=== PATIENT | female | born 1985 | race Caucasian/White ===

== ENCOUNTER 2017-01-09 21:55 | Inpatient (IN) | payer MEDICAID ==
[~2017-01-09] VITALS: Ht 152.4 cm; Wt 78.2 kg
[2017-01-09 21:57] VITALS: BP 114/73; PULSE 64; TEMP 98.4
[2017-01-09] MEDS ORDERED: PRENATAL1 TA7 PO (22:15)
[2017-01-09 23:00] VITALS: BP 121/60; PULSE 71
[2017-01-09 23:30] VITALS: BP 116/74; PULSE 64
[2017-01-10] VITALS (48 sets, daily range): BP systolic 93–128; BP diastolic 50–77; PULSE 59–134; TEMP 97.3–102.3
[2017-01-10 01:15] LABS: BASO # 0.1 (0.0-0.2); BASO % 0.4 % (0.0-2.0); EOS # 0.3 (0.0-0.7); EOS % 1.7 % (0-4.0); GRAN % 70.4 % (42.2-75.2); HEMATOCRIT 33.1 % (37.0-47.0); HEMOGLOBIN 11.2 g/dl (12.5-16.0); LYMPH # 2.7 (1.2-3.4); LYMPH % 17.1 % (20.0-51.0); MEAN CELL VOLUME 96 fl (80.0-100.0); MEAN CORPUSCULAR HEMOGLOBIN 32 pg (27.0-31.0); MEAN CORPUSCULAR HGB CONC 34 g/dl (33.0-37.0); MONO # 1.5 (0.1-0.6); MONO % 9.6 % (1.7-9.3); PLATELET COUNT 155 K/mm3 (130-400); RED BLOOD COUNT 3.46 M/mm3 (4.10-5.30); WHITE BLOOD COUNT 15.7 K/mm3 (4.8-10.8)
[2017-01-11 03:29] VITALS: BP 100/63; PULSE 69; TEMP 97.6
[2017-01-11] MEDS ORDERED: IBU800 M1 PO (06:38)
[2017-01-11] MEDS ORDERED: PERCOCET 325 MG1 TA2 PO (06:38)
[2017-01-11 07:00] VITALS: BP 101/51; PULSE 62; TEMP 98.2
[2017-01-11 11:30] VITALS: BP 120/56; PULSE 78; TEMP 98.1
== END 2017-01-11 14:25 | disposition home or self-care (01) | DRG 774 ==
LOC: LDRO 21:55 → LDR 01-10 → OB 01-10 → LDR 01-10 09:01 → OB 01-10 15:30
PROVIDERS: Obstetrics & Gynecology
PROC: 10E0XZZ Delivery of Products of Conception, External Approach (ICD-10-PCS; principal; 2017-01-10)
DX: O48.0 Post-term pregnancy (principal); O75.2 Pyrexia during labor, not elsewhere classified; Z3A.41 41 weeks gestation of pregnancy; Z37.0 Single live birth
CPT/HCPCS: J0595; J0690; J2590; J2795; J7120

== ENCOUNTER 2019-04-21 09:55 | Inpatient (IN) | payer SELFPAY ==
[~2019-04-21] VITALS: Ht 152.4 cm; Wt 82.7 kg
[2019-04-21] VITALS (29 sets, daily range): BP systolic 100–133; BP diastolic 53–88; PULSE 75–109; TEMP 98.1–99.5
[~2019-04-21 09:55] MED LIST: IBU800 M1 PO; PERCOCET 325 MG1 TA2 PO; PRENATAL1 TA7 PO
--- NOTE | 2019-04-21 10:05 | NUR ---
G4L3 at 41.1 weeks gestation to LDR5 for contractions. Patient appears uncomfortable, she is tense and breathing through them. She reports good movement and denies leaking of fluid or vaginal bleeding. Patient changed into gown and to bed. SVE 3-4/75/-2. EFMs explained and applied. FHR 140bpm and reactive. CTX q3-4 minutes. VSS. Assessment completed. Plan of care reviewed. Patient is requesting an epidural. Dr. Cevallos on unit and updated on patient's status. Orders to admit received.
[2019-04-21] MEDS ORDERED: MILK THISTLE150 MG PO (10:22)
[2019-04-21] MEDS ORDERED: GARLIC100 MG PO (10:23)
[2019-04-21 11:19] LABS: BASO % 0.3 % (0.0-2.0); EOS # 0.1 (0.0-0.7); EOS % 0.5 % (0-4.0); GRAN # 11.2 (1.4-6.5); GRAN % 74.4 % (42.2-75.2); HEMATOCRIT 30.7 % (37.0-47.0); HEMOGLOBIN 9.7 g/dl (12.5-16.0); LYMPH # 2.3 (1.2-3.4); LYMPH % 15.1 % (20.0-51.0); MEAN CELL VOLUME 87 fl (80.0-100.0); MEAN CORPUSCULAR HEMOGLOBIN 27 pg (27.0-31.0); MEAN CORPUSCULAR HGB CONC 32 g/dl (33.0-37.0); MEAN PLATELET VOLUME 10.8 fl (7.4-10.4); MONO # 1.3 (0.1-0.6); MONO % 8.8 % (1.7-9.3); PLATELET COUNT 222 K/mm3 (130-400); RED BLOOD COUNT 3.55 M/mm3 (4.10-5.30)
--- NOTE | 2019-04-21 11:51 | NUR ---
1045 IV STARTED IN LEFT HAND AND BLOOD WORK DRAWN. 1100 ALL CONSENTS SIGNED. PATIENT SITS UP ON EDGE OF BED FOR EPIDURAL PLACEMENT. Florentin DE SOUZA DOOR GLASS INSTALLER AT BEDSIDE TOLERATE WELL. SEE DOOR GLASS INSTALLER NOTES IF NEEDED.
--- NOTE | 2019-04-21 17:39 | NUR ---
1650 PATIENT PUSHES WITH EACH CONTRACTION. DR MARIA AT BEDSIDE FOR DELIVERY. 1700 PATIENT CONTINUES TO PUSH WITH CONTRACTIONS. DR AND NURSERY IN ROOM FOR DLEIVERY. 1707 HEAD DELIVERED AT THIS TIME BY DR MARIA. PATIENT CONTINUES TO PUSH. UNABLE TO DELIVERY BABY. LEGS FLEXED AT THIS TIME AND HEAD OF BED FLAT. EMERGERGY LIGHT PULLED FOR HELP. PATIENT CONTINUES TO PUSH WITH DR. INTRUCTIONS. SUPER PUBIC PRESSURE APPLIED PER ORDER. PLEASE READ DR SCHMITT NOTES FOR QUESTIONS. 1709 BABY DELIVERED AT THIS TIME. CORD CLAMPED AND CUT BY DR MARIA AND BABY TO [facility] FOR CLOSE ASSESSMENT. BLEEDING WNL. 1715 PLACENTA DELIVERED AT THIS TIME, AND PITOCIN STARTED AT 333 PER PROTOCOL. BLEEDING WNL AND FUNDUS FIRM. DR MARIA AT BEDSIDE TAKING TO PATIENT AND HASBAND ON THE SHOULDER DYSTOCIA. VERBAL UNDERSTANDING NOTED.
[2019-04-22 00:15] VITALS: BP 104/52; PULSE 81; TEMP 99.5
[2019-04-22 04:05] VITALS: BP 104/63; PULSE 67; TEMP 97.7
[2019-04-22 06:40] VITALS: BP 108/55; PULSE 66; TEMP 97.4
--- NOTE | 2019-04-22 10:38 | NUR ---
Initial visit; Patient thanked Director Of [employer] for looking in on her and offering congratulations and God's blessings for the of her son. Director Of [employer] thanked family for choosing [facility].
[2019-04-22 16:50] VITALS: BP 113/80; PULSE 82; TEMP 98
--- NOTE | 2019-04-22 17:45 | NUR ---
1745- Mother's V#s do not match baby's band due to being printed using Mother's pre-in account. Numbers verified with mother and additional band placed on mother so coodinating numbers match at discharge.
[2019-04-22 21:05] VITALS: BP 108/57; PULSE 82; TEMP 98.1
[2019-04-23 07:38] VITALS: BP 105/68; PULSE 72; TEMP 97.2
[2019-04-23] MEDS ORDERED: MOTRIN 800800 MG/TAB PO (08:47)
[2019-04-23] MEDS ORDERED: PERCOCET 325 MG1 TA2 PO (08:48)
[2019-04-23 16:34] VITALS: BP 104/68; PULSE 64; TEMP 97.2
== END 2019-04-23 17:19 | disposition home or self-care (01) | DRG 807 ==
LOC: LDRO 09:55 → LDR 10:05 → OB 21:54
PROVIDERS: ADMIT Student in an Organized Health Care Education/Training Program
PROC: 10E0XZZ Delivery of Products of Conception, External Approach (ICD-10-PCS; principal; 2019-04-21)
DX: O66.0 Obstructed labor due to shoulder dystocia (principal); Z37.0 Single live birth; O76 Abnormality in fetal heart rate and rhythm complicating labor and delivery; Z3A.41 41 weeks gestation of pregnancy; Z23 Encounter for immunization
CPT/HCPCS: J2590; J2795; J7120

== ENCOUNTER → 2020-12-07 | Outpatient (CLI) | payer SELFPAY ==
[~2020-12-07] MED LIST changes: +GARLIC100 MG PO; +MILK THISTLE150 MG PO; +MOTRIN 800800 MG/TAB PO; +PROBIOTIC ACID1 EAC3 PO
== END ==
LOC: DIA.EDTELE 10:06
DX: O24.419 Gestational diabetes mellitus in pregnancy, unspecified control (principal)
CPT/HCPCS: G0108

== ENCOUNTER 2021-01-12 08:34 | Inpatient (IN) | payer SELFPAY ==
[~2021-01-12] VITALS: Ht 152.4 cm; Wt 84.1 kg
[~2021-01-12 08:34] MED LIST changes: -PROBIOTIC ACID1 EAC3 PO
[2021-01-14] VITALS (47 sets, daily range): BP systolic 84–143; BP diastolic 48–77; PULSE 63–110; TEMP 97.8–99.3
--- NOTE | 2021-01-14 07:00 | NUR ---
0700- G5L4 here for IOL. Ambulatory to LDR5 with spouse. Patient reports normal movement, and occasional contractions. Denies any LOF or VB. Changes into clean gown and resting in bed. 0715- EMF explained and placed x2. FHR tracing intermittently. RN remains at bedside adj. EFM. 0725- FHR tracing well in LUQ. VS obtained. 0740- IV to right hand. Routine labs obtained. IVF infusing. Consent forms explained and signed. Assessment completed. 0745- Dr. Arellano updated on pt. See physician notification.
[2021-01-14 07:56] LABS: BASO % 0.4 % (0.0-2.0); EOS # 0.2 K/mm3 (0.0-0.7); EOS % 1.5 % (0-4.0); GRAN # 6.2 K/mm3 (1.4-6.5); GRAN % 62.6 % (42.2-75.2); LYMPH # 2.2 K/mm3 (1.2-3.4); LYMPH % 22.4 % (20.0-51.0); MEAN CELL VOLUME 83 fl (80.0-100.0); MEAN CORPUSCULAR HGB CONC 33 g/dl (33.0-37.0); MEAN PLATELET VOLUME 10.4 fl (7.4-10.4); MONO # 1.2 K/mm3 (0.1-0.6); MONO % 11.7 % (1.7-9.3); PLATELET COUNT 192 K/mm3 (130-400); RED BLOOD COUNT 3.14 M/mm3 (4.10-5.30); REDCELL DISTRIBUTION WIDTH-CV 14.9 % (11.5-14.5)
[2021-01-14 07:59] LABS: HEMATOCRIT 26.1 % (37.0-47.0); HEMOGLOBIN 8.5 g/dl (12.5-16.0); MEAN CORPUSCULAR HEMOGLOBIN 27 pg (27.0-31.0)
[2021-01-14] MEDS ORDERED: PROBIOTIC ACID1 EAC3 PO (08:03)
--- NOTE | 2021-01-14 08:26 | NUR ---
Dr. Arellano to bedside. Bedside ultrasound by provider. Cephalic presentation confirmed. AROM by Dr. Arellano for small amount of clear fluid.
--- NOTE | 2021-01-14 09:15 | NUR ---
Patient sitting up right. At bedside adjusting EFM. 0923: Patient sitting up in bed. Maternal HR tracing. RN at bedside adjusting EFM.
[2021-01-14 11:52] LABS: TRICYCLIC ANTIDEPRESS URINE NEGATIVE
--- NOTE | 2021-01-14 13:15 | NUR ---
1315- Patient reports increases sharp pain. Has pushed patient controlled epidural bolus x3. This RN requesting Francisco Javier Jones CRNA at bedside to eval pt. Francisco Javier Jones WEAVER HAND at bedside and doses epidural. See anesthesia record. 1330- Patient reports no relief with epidural bolus. Francisco Javier Jones WEAVER HAND at bedside to bolus epidural. See anesthesia record. 1339- Francisco Javier Jones CRNA at bedside to replace epidural. Patient to edge of bed. 1343- Epidural placed and single shot at this time by Francisco Javier Jones CRNA. 1350- Patient wedge left. Patient reports pain improving. Resting with call light within reach.
--- NOTE | 2021-01-14 14:45 | NUR ---
1448- Dr. Arellano to bedside. SVE per provider 10cm. Patient instructed on pushing with ctx. Morales catheter removed. Pushes with ctx with RN and Dr. Arellano at bedside. 1511- Dr. Arellano remains at patient bedside pushing with patient. Cont. to reivew strips. Pitocin to 20mu per Dr. Garces orders. Per provider, dose not move vertex with pushing efforts. 1530- Pushing stopped.
--- NOTE | 2021-01-14 15:33 | NUR ---
Bilateral side lying hip release. 1555- Exaggerated runners right side with peanut ball.
--- NOTE | 2021-01-14 16:00 | NUR ---
1600- Dr. Arellano remains on unit and rerviews strips. 1620- Dr. Arellano to patient bedside. Patient begins to push with ctx with Dr. Arellano at bedside. Poor maternal effort. 1640- Patient continues to push with ctx with Dr. Arellano and RN at bedside. Poor maternal effort. Slow progress. 1649- Spontaneous delivery of head. NC x1. Shoulder dystocia called by Dr. Arellano. HOB down. Saeed done. 165- Delivery of infant body at this time over intact perineum. Nares and mouth bulb suctioned by Dr. Arellano. Pitocin paused. 165- Cord clamped x2 and cut by father of . Care of assumed by Ray Fernández RN. to warmer. 1654- Spontaneous and intact delivery of placenta. Pitocin resumed at 333ml/hr. 1700- Fundus firm, moderate freeflow. Dr. Arellano at bedside and notified. 1701- Fundus firm, midline and bleeding minimal. Brenda care provided, pads changed, and ice pack to perineum. Plan of care and safety precautions reviewed with patient and spouse who verbalize understanding. See physician dictation, anesthesia record, and nurses notes.
[2021-01-15 00:50] VITALS: BP 87/65; PULSE 80; TEMP 97.9
[2021-01-15 03:10] VITALS: BP 96/52; PULSE 74; TEMP 99.2
[2021-01-15] MEDS ORDERED: MOTRIN 800800 MG/TAB PO (07:37)
[2021-01-15 08:00] VITALS: BP 99/58; PULSE 69; TEMP 97.6
[2021-01-15 12:48] VITALS: BP 101/65; PULSE 86; TEMP 97.5
[2021-01-15 17:30] VITALS: BP 108/68; PULSE 79; TEMP 97.9
== END 2021-01-15 19:00 | disposition home or self-care (01) | DRG 807 ==
LOC: LDR 01-14 06:55 → OB 01-14 06:55 → LDR 01-14 07:19 → OB 01-14 21:00
PROVIDERS: ADMIT Obstetrics & Gynecology
PROC: 10E0XZZ Delivery of Products of Conception, External Approach (ICD-10-PCS; principal; 2021-01-14)
PROC: 10907ZC Drainage of Amniotic Fluid, Therapeutic from Products of Conception, Via Natural or Artificial Opening (ICD-10-PCS; 2021-01-14)
DX: O24.420 Gestational diabetes mellitus in childbirth, diet controlled (principal); Z37.0 Single live birth; O69.81X0 Labor and delivery complicated by cord around neck, without compression, not applicable or unspecified; O66.0 Obstructed labor due to shoulder dystocia; O76 Abnormality in fetal heart rate and rhythm complicating labor and delivery; Z3A.39 39 weeks gestation of pregnancy
CPT/HCPCS: J2400; J2590; J2795; J7120

== ENCOUNTER 2022-05-20 13:41 | Inpatient (IN) | payer OTHER ==
[~2022-05-20] VITALS: Ht 160.1 cm; Wt 87.3 kg
[~2022-05-20 13:41] MED LIST changes: +PROBIOTIC ACID1 EAC3 PO
[2022-05-24] VITALS (44 sets, daily range): BP systolic 78–122; BP diastolic 39–69; PULSE 62–86; TEMP 97.6–98.2
[2022-05-24 08:24] LABS: BASO % 0.4 % (0.0-2.0); EOS # 0.1 K/mm3 (0.0-0.7); EOS % 1.2 % (0.0-4.0); GRAN # 5.3 K/mm3 (1.4-6.5); GRAN % 63.2 % (42.2-75.2); HEMOGLOBIN 10.4 g/dl (12.5-16.0); LYMPH # 2.3 K/mm3 (1.2-3.4); LYMPH % 27.8 % (20.0-51.0); MEAN CELL VOLUME 93 fl (80.0-100.0); MEAN CORPUSCULAR HEMOGLOBIN 31 pg (27-31); MEAN CORPUSCULAR HGB CONC 33 g/dl (33.0-37.0); MEAN PLATELET VOLUME 11.4 fl (7.4-10.4); MONO # 0.5 K/mm3 (0.1-0.6); MONO % 6.3 % (1.7-9.3); PLATELET COUNT 148 K/mm3 (130-400); RED BLOOD COUNT 3.35 M/mm3 (4.10-5.30); REDCELL DISTRIBUTION WIDTH-CV 15.7 % (11.5-14.5)
[2022-05-24 08:29] LABS: HEMATOCRIT 31.1 % (37.0-47.0)
[2022-05-25 01:00] VITALS: BP 113/64; PULSE 73; TEMP 97.9
[2022-05-25 05:15] VITALS: BP 98/56; PULSE 57; TEMP 99.1
[2022-05-25 07:19] VITALS: BP 99/59; PULSE 67; TEMP 98.5
[2022-05-25 16:20] VITALS: BP 99/54; PULSE 66
[2022-05-25 20:00] VITALS: BP 102/64; PULSE 70; TEMP 98.1
[2022-05-26] MEDS ORDERED: PERCOCET 325 MG1 TA2 PO (08:17)
[2022-05-26] MEDS ORDERED: MOTRIN 800800 MG/TAB PO (08:17)
[2022-05-26 08:41] VITALS: BP 107/58; PULSE 71; TEMP 97.2
[2022-05-26 16:03] VITALS: BP 105/58; PULSE 72; TEMP 97.7
[2022-05-26 19:30] VITALS: BP 107/53; PULSE 60; TEMP 98.1
[2022-05-27 08:10] VITALS: BP 105/58; PULSE 65; TEMP 97.7
== END 2022-05-27 15:45 | disposition home or self-care (01) | DRG 788 ==
LOC: OB 05-24 06:31 → LDR 05-24 06:31 → OB 05-24 13:41
PROVIDERS: ADMIT Obstetrics & Gynecology
PROC: 10D00Z1 Extraction of Products of Conception, Low, Open Approach (ICD-10-PCS; principal; 2022-05-24)
PROC: 3E033VJ Introduction of Other Hormone into Peripheral Vein, Percutaneous Approach (ICD-10-PCS; 2022-05-24)
PROC: 10907ZC Drainage of Amniotic Fluid, Therapeutic from Products of Conception, Via Natural or Artificial Opening (ICD-10-PCS; 2022-05-24)
DX: O24.420 Gestational diabetes mellitus in childbirth, diet controlled (principal); Z37.0 Single live birth; O99.820 Streptococcus B carrier state complicating pregnancy; O76 Abnormality in fetal heart rate and rhythm complicating labor and delivery; O69.2XX0 Labor and delivery complicated by other cord entanglement, with compression, not applicable or unspecified; O69.81X0 Labor and delivery complicated by cord around neck, without compression, not applicable or unspecified; Z3A.39 39 weeks gestation of pregnancy
CPT/HCPCS: J0171; J0690; J1885; J2401; J2405; J2540; J2590; J2795; J7120